=== PATIENT | female | born 2000 | race Hispanic/Latino ===

== ENCOUNTER 2024-07-07 05:27 | Observation (INO) | payer OTHER ==
[2024-07-07 06:09] VITALS: BMI 23.6
[2024-07-07] MEDS ORDERED: Ondansetron PF 4 MG/2 ML Vial IVP PRN ×2 (06:33→08:29)
[2024-07-07] MEDS ORDERED: Promethazine HCl 25 MG/ML VIAL IM PRN ×2 (06:33→08:29)
[2024-07-07] MEDS ORDERED: hydrALAZINE 20 MG/ML VIAL SLOW IVP PRN (06:33)
[2024-07-07] MEDS ORDERED: Diphenoxylate HCl/Atropine Tablet PO PRN ×2 (06:34)
[2024-07-07] MEDS ORDERED: Methylergonovine 0.2 MG/ML VIAL IM PRN (06:34)
[2024-07-07] MEDS ORDERED: Misoprostol 200 MCG TAB PR PRN (06:34)
[2024-07-07] MEDS ORDERED: Carboprost 250 MCG/ML AMP IM PRN (06:34)
[2024-07-07] MEDS ORDERED: fentaNYL 50 mcg/mL 1 mL Vial SLOW IVP PRN (06:34)
[2024-07-07] MEDS ORDERED: Tranexamic Acid 1,000 MG/10 ML VIAL IVP PRN (06:34)
[2024-07-07] MEDS ORDERED: Acetaminophen 500 MG TAB PO PRN (06:34)
[2024-07-07] MEDS ORDERED: Oxytocin 30 units/NS 500 ML 500 ML IV SCH (06:45)
[2024-07-07] MEDS: Lactated Ringer's 500 ML IV PRN (07:14)
[2024-07-07 07:49] LABS: #Basophils 0.07 10x3/uL (0.0-0.2); #Eosinphils 0.17 10x3/uL (0.0-0.5); #Monocytes 0.73 10x3/uL (0.0-1.1); #Neutrophils 5.11 10x3/uL (1.5-8.4); %Basophils 0.8 % (0.0-2.0); %Eosinophils 2.1 % (0.0-6.0); %Lymphocytes 24.2 % (18.0-47.0); %Monocytes 8.8 % (0.0-10.0); Hematocrit 34.6 % (34.9-44.5); Hemoglobin 11.8 g/dL (12.0-15.5); Mean Corpuscular HGB CONC 34.1 g/dL (32.0-36.0); Mean Corpuscular Hemoglobin 27.5 pg (27.0-33.0); Mean Corpuscular Volume 80.7 fL (81.6-98.3); Mean Platelet Volume 10.5 fL (7.4-10.4); Platelet Count 268 10x3/uL (150-450); RBC Distribution Width 14.4 % (11.5-14.5); Red Blood Cell (RBC) Count 4.29 10x6/uL (3.90-5.03); White Blood Cell (WBC) Count 8.3 10x3/uL (3.5-10.5)
[2024-07-07] MEDS: fentaNYL/Ropivacaine Epidural 100 ML ONE (08:18)
[2024-07-07] MEDS ORDERED: diphenhydrAMINE 50 MG/ML VIAL IVP PRN (08:29)
[2024-07-07] MEDS ORDERED: Moisturizing Cream (Eucerin) 113 GM JAR TOP PRN (08:29)
[2024-07-07] MEDS ORDERED: Acetaminophen 325 MG TAB PO PRN (08:29)
[2024-07-07] MEDS ORDERED: Naloxone HCl 0.4 mg/ml Vial IVP PRN ×2 (08:29)
[2024-07-07] MEDS ORDERED: Communication Order-Pharmacy FS SCH (08:30)
[2024-07-07] MEDS: Terbutaline Sulfate 1 MG/ML VIAL SC SCH (08:30)
[2024-07-07] MEDS ORDERED: fentaNYL 2 mcg/Ropivacaine 0.2% Epidural 100 ML CADD EPIDURAL SCH (08:30)
[2024-07-07] MEDS: Mineral Oil ENEMA PR PRN (08:33)
[2024-07-07] MEDS: ePHEDrine Sulfate 50 MG/10 ML VIAL SLOW IVP PRN (08:52)
[2024-07-07] MEDS: Dexmedetomidine 200 MCG/2 ML VIAL ONE (10:00)
[2024-07-07] MEDS: fentaNYL 50 mcg/mL 1 mL Vial ONE (10:04)
[2024-07-07 11:20] LABS: PTT 27.5 sec (22.0-33.0); Prothrombin Time 10.7 sec (9.5-12.1)
[2024-07-07] MEDS ORDERED: ePHEDrine Sulfate 50 MG/10 ML VIAL ONE (13:00)
[2024-07-07] MEDS ORDERED: Bupivacaine 0.25% HCL 30 ML VIAL ONE (13:00)
== END 2024-07-07 14:26 | disposition home or self-care (01) ==
LOC: CSHLD 05:27
PROVIDERS: ADMIT Family Medicine; ATTEND Family Medicine
PROC: 10S0XZZ Reposition Products of Conception, External Approach (ICD-10-PCS; principal; 2024-07-07)
DX: O32.1XX0 Maternal care for breech presentation, not applicable or unspecified (principal); Z3A.37 37 weeks gestation of pregnancy
CPT/HCPCS: 36415; 51702; 59412; 76819; 85025; 85384; 85610; 85730; 86850; 86900; 86901; 96365; 96366; 96372; 96374; 96375; 99285; G0378; J0665; J3010; J3105; J7120